=== PATIENT | female | born 1950 | race Caucasian/White ===

== ENCOUNTER 2024-10-04 03:09 | Observation (INO) | payer OTHER ==
[2024-10-04 03:30] VITALS: BMI 21.4
[2024-10-04] MEDS: LACTATED RINGERS SOLUTION 1000 ML INFUS.BAG IV ONE (04:15)
[2024-10-04 04:22] LABS: ABSOLUTE IMMATURE GRANULOCYTES 0.03 x10^3/uL (0.0-0.031); BASOPHILS # 0.07 x10^3/uL (0.01-0.08); EOSINOPHIL % 3.2 % (0.7-5.8); EOSINOPHILS # 0.28 x10^3/uL (0.04-0.36); HEMATOCRIT 34.6 % (34.1-44.9); HEMOGLOBIN 11.3 g/dL (11.2-15.7); MCHC 32.7 g/dl (32.2-35.5); MEAN CELL VOLUME 90.3 fl (79.4-94.8); MEAN PLT VOLUME 9.1 fl (9.4-12.3); MONOCYTE # 0.63 x10^3/uL (0.24-0.86); MONOCYTE % 7.2 % (4.7-12.5); PLATELET COUNT 301 x10^3/uL (182-369); RDW 12.5 % (12.4-16.6); VENOUS BASE EXCESS -4.1 mmol/L (-2-2); VENOUS O2 SATURATION 54.9 % (70-80); VENOUS PCO2 39.7 mmHg (38-52); VENOUS PH 7.345 (7.310-7.410)
[2024-10-04 04:58] LABS: CHLORIDE 92 mmol/L (98-107); POTASSIUM 4.4 mmol/L (3.5-5.1); SODIUM 130 mmol/L (136-145)
[2024-10-04 05:01] LABS: ALBUMIN 4.3 g/dl (3.4-5.0); ANION GAP 15 mmol/L (4-13); BLOOD UREA NITROGEN 23.8 mg/dL (7-18); CALCIUM 9.8 mg/dL (8.5-10.1); CO2 23 mmol/L (21-32); MAGNESIUM 1.7 mg/dL (1.8-2.4)
[2024-10-04 05:03] LABS: PHOSPHOROUS 3.3 mg/dL (2.5-4.9); SGOT/AST 17 U/L (15-37); SGPT/ALT 19 U/L (13-61)
[2024-10-04 05:05] LABS: BILIRUBIN,TOTAL 0.7 mg/dL (0.2-1); CREATININE 1.1 mg/dL (0.55-1.3)
[2024-10-04 05:07] LABS: ALK PHOS 88 U/L (45-117)
[2024-10-04 05:08] LABS: GLUCOSE,RANDOM 555 mg/dL (74-106)
[2024-10-04] MEDS: INSULIN (NOVOLOG) ASPART 100 UNITS/ML 10ML VIAL SQ ONE (05:24)
[2024-10-04] MEDS: SODIUM CHLORIDE 1,000 ML IV SCH ×2 (06:43→22:48)
[2024-10-04] MEDS ORDERED: HYDROCHLOROTHIAZIDE 12.5 MG CAPSULE (FP) PO SCH (10:00)
[2024-10-04] MEDS: amLODIPine BESYLATE 5 MG TABLET (FP) PO SCH (11:18)
[2024-10-04] MEDS: FAMOTIDINE 20 MG TABLET PO SCH (11:21)
[2024-10-04 11:22] LABS: POTASSIUM 3.8 mmol/L (3.5-5.1)
[2024-10-04] MEDS: LISINOPRIL 10 MG TABLET PO SCH (11:22)
[2024-10-04] MEDS: FOLIC ACID 1 MG TABLET (FP) PO SCH (11:22)
[2024-10-04] MEDS: CLOPIDOGREL BISULFATE 75 MG TABLET (FP) PO SCH (11:22)
[2024-10-04] MEDS: ENOXAPARIN NA (PORCINE) 40 MG/0.4 ML DISP.SYRIN SQ SCH (11:23)
[2024-10-04] MEDS: INSULIN GLARGINE (LANTUS) 100 UNITS/ML UNITS SQ SCH ×2 (11:23→21:20)
[2024-10-04 11:26] LABS: BLOOD UREA NITROGEN 17.9 mg/dL (7-18)
[2024-10-04 11:29] LABS: CREATININE 0.9 mg/dL (0.55-1.3)
[2024-10-04] MEDS: TIMOLOL MALEATE 0.25% GFS OPHTHALMIC SOLN 5 ML BOTTLE OU SCH (11:39)
[2024-10-04] MEDS: INSULIN ASPART SLIDING SCALE (NOVOLOG) 1 VIAL SQ SCH ×2 (11:51→17:29)
[2024-10-04] MEDS: BRIMONIDINE TARTRATE 0.15% OPHTHALMIC 5 ML BOTTLE OU SCH (21:19)
[2024-10-04] MEDS: ATORVASTATIN CA 10 MG TABLET (FP) PO SCH (21:21)
[2024-10-04] MEDS: SENNOSIDES 8.6MG TABLET (FP) PO SCH (21:21)
[2024-10-04] MEDS ORDERED: SENNOSIDES 8.6MG TABLET (FP) PO SCH (22:00)
[2024-10-04] MEDS ORDERED: INSULIN (LEVEMIR) 100 UNITS/ML UNITS SQ SCH (22:00)
[2024-10-04] MEDS ORDERED: LATANOPROST 0.005% OPHTH SOLN 2.5ML BOTTLE OD SCH (22:00)
[2024-10-04] MEDS ORDERED: ATORVASTATIN CA 10 MG TABLET (FP) PO SCH (22:00)
[2024-10-04] MEDS: LATANOPROST 0.005% OPHTH SOLN 2.5ML BOTTLE OD SCH (22:46)
[2024-10-05] MEDS: DEXTROSE 50%-WATER 25 GM/50 ML DISP.SYRIN IVPUSH ONE ×2 (06:35→15:56)
[2024-10-05] MEDS: BRIMONIDINE TARTRATE 0.15% OPHTHALMIC 5 ML BOTTLE OU SCH (07:41)
[2024-10-05] MEDS: FAMOTIDINE 20 MG TABLET PO SCH (09:47)
[2024-10-05] MEDS: CLOPIDOGREL BISULFATE 75 MG TABLET (FP) PO SCH (09:47)
[2024-10-05] MEDS: ENOXAPARIN NA (PORCINE) 40 MG/0.4 ML DISP.SYRIN SQ SCH (09:48)
[2024-10-05] MEDS: FOLIC ACID 1 MG TABLET (FP) PO SCH (09:48)
[2024-10-05] MEDS: TIMOLOL MALEATE 0.25% GFS OPHTHALMIC SOLN 5 ML BOTTLE OU SCH (10:08)
[2024-10-05 11:09] LABS: ABSOLUTE IMMATURE GRANULOCYTES 0.03 x10^3/uL (0.0-0.031); BASOPHILS # 0.04 x10^3/uL (0.01-0.08); EOSINOPHIL % 4.1 % (0.7-5.8); EOSINOPHILS # 0.26 x10^3/uL (0.04-0.36); HEMATOCRIT 30.4 % (34.1-44.9); HEMOGLOBIN 10.2 g/dL (11.2-15.7); MCHC 33.6 g/dl (32.2-35.5); MEAN CELL VOLUME 87.9 fl (79.4-94.8); MONOCYTE # 0.47 x10^3/uL (0.24-0.86); MONOCYTE % 7.3 % (4.7-12.5); PLATELET COUNT 296 x10^3/uL (182-369); RDW 12.6 % (12.4-16.6)
[2024-10-05 11:31] LABS: BLOOD UREA NITROGEN 8.7 mg/dL (7-18); CALCIUM 8.1 mg/dL (8.5-10.1)
[2024-10-05 11:35] LABS: CREATININE 0.8 mg/dL (0.55-1.3)
[2024-10-05] MEDS: LISINOPRIL 10 MG TABLET PO SCH (12:12)
[2024-10-05] MEDS: amLODIPine BESYLATE 5 MG TABLET (FP) PO SCH (12:12)
[2024-10-05 18:30] VITALS: RESP 18
[2024-10-05 21:21] VITALS: TEMP 98.2
[2024-10-06] MEDS: INSULIN GLARGINE (LANTUS) 100 UNITS/ML UNITS SQ SCH (06:24)
[2024-10-06 10:15] VITALS: BP 119/48; PULSE 72
== END 2024-10-06 11:32 | disposition home or self-care (01) ==
LOC: JER 03:09 → JERBED 05:00 → J5S 10:33
PROVIDERS: ADMIT Internal Medicine; ATTEND Internal Medicine
PROC: 3E033GC Introduction of Other Therapeutic Substance into Peripheral Vein, Percutaneous Approach (ICD-10-PCS; principal; 2024-10-04)
PROC: 3E023GC Introduction of Other Therapeutic Substance into Muscle, Percutaneous Approach (ICD-10-PCS; 2024-10-04)
PROC: 3E013VG Introduction of Insulin into Subcutaneous Tissue, Percutaneous Approach (ICD-10-PCS; 2024-10-04)
PROC: 3E0337Z Introduction of Electrolytic and Water Balance Substance into Peripheral Vein, Percutaneous Approach (ICD-10-PCS; 2024-10-04)
DX: E11.65 Type 2 diabetes mellitus with hyperglycemia (principal); I65.22 Occlusion and stenosis of left carotid artery; I10 Essential (primary) hypertension; E78.5 Hyperlipidemia, unspecified; Z88.0 Allergy status to penicillin; Z88.2 Allergy status to sulfonamides; Z88.5 Allergy status to narcotic agent; Z88.8 Allergy status to other drugs, medicaments and biological substances
CPT/HCPCS: 36415; 80048; 80053; 82010; 82803; 82962; 83036; 83735; 84100; 85025; 87635; 93005; 93010; 96361; 96372; 96374; 96376; 97116-GP; 97161-GP; 99285-25; G0378

== ENCOUNTER 2024-10-11 01:35 | Emergency (ER) | payer OTHER ==
[2024-10-11 01:47] VITALS: RESP 16; BMI 24.4
[2024-10-11] MEDS ORDERED: INSULIN ASPART SLIDING SCALE (NOVOLOG) 1 VIAL SQ ONE (02:12)
[2024-10-11] MEDS: INSULIN (NOVOLOG) ASPART 100 UNITS/ML 10ML VIAL SQ ONE (02:17)
[2024-10-11 05:01] VITALS: BP 127/57; PULSE 84; TEMP 97.5
== END 2024-10-11 05:08 ==
LOC: JER 01:35
DX: E11.65 Type 2 diabetes mellitus with hyperglycemia (principal)
CPT/HCPCS: 82962; 99283-25

== ENCOUNTER 2024-12-04 01:57 | Inpatient (IN) | payer OTHER ==
[2024-12-04] MEDS: LACTATED RINGERS SOLUTION 1000 ML INFUS.BAG IV ONE ×2 (02:19→10:17)
[2024-12-04] MEDS: ACETAMINOPHEN 1000 MG/100 ML BAG IVPB ONE ×2 (02:19→21:21)
[2024-12-04] MEDS ORDERED: ACETAMINOPHEN INJECTION 100 ML ONE (02:20)
[2024-12-04] MEDS ORDERED: CEFEPIME HCL/D5W 1 GM/50 ML BAG IVPB ONE (02:55)
[2024-12-04] MEDS: CEFEPIME HCL 1 GM VIAL (RESTRICTED TO ID) IVPB ONE (02:57)
[2024-12-04 02:59] LABS: HEMATOCRIT 29.4 % (34.1-44.9); HEMOGLOBIN 9.2 g/dL (11.2-15.7); MCHC 31.3 g/dl (32.2-35.5); MEAN CELL VOLUME 95.8 fl (79.4-94.8); MEAN PLT VOLUME 9.5 fl (9.4-12.3); PLATELET COUNT 451 x10^3/uL (182-369); RDW 13.8 % (12.4-16.6)
[2024-12-04 03:02] LABS: VENOUS BASE EXCESS -19.9 mmol/L (-2-2); VENOUS O2 SATURATION 47.1 % (70-80); VENOUS PCO2 25.9 mmHg (38-52)
[2024-12-04 03:05] LABS: VENOUS PH 7.11 (7.310-7.410)
[2024-12-04 03:10] LABS: INR 1.06 (0.83-1.09); PROTHROMBIN TIME (PATIENT) 11.5 SEC (9.7-13.0)
[2024-12-04 03:13] LABS: ACTIVATED PTT 25.6 SECONDS (25.2-36.5)
[2024-12-04 03:18] LABS: CHLORIDE 91 mmol/L (98-107); POTASSIUM 5.4 mmol/L (3.5-5.1); SODIUM 126 mmol/L (136-145)
[2024-12-04 03:20] LABS: CALCIUM 8.1 mg/dL (8.5-10.1)
[2024-12-04 03:21] LABS: ALBUMIN 2.4 g/dl (3.4-5.0); ANION GAP 27 mmol/L (4-13); BLOOD UREA NITROGEN 39.6 mg/dL (7-18); CO2 8 mmol/L (21-32)
[2024-12-04 03:24] LABS: CREATININE 2.2 mg/dL (0.55-1.3); SGOT/AST 254 U/L (15-37); SGPT/ALT 103 U/L (13-61)
[2024-12-04 03:25] LABS: BILIRUBIN,TOTAL 0.4 mg/dL (0.2-1); TOT PROT 5.1 g/dl (6.4-8.2)
[2024-12-04 03:27] LABS: ALK PHOS 152 U/L (45-117)
[2024-12-04 03:55] LABS: EPI CELLS 20 /uL (0-25.1); HYALINE CASTS 6 /uL (0-3.1); URINE APPEARANCE CLOUDY; URINE BACTERIA 31 /uL (0-1359); URINE BILIRUBIN NEGATIVE (NEGATIVE); URINE COLOR YELLOW; URINE GLUCOSE (UA) 3+ (NEGATIVE); URINE KETONE TRACE (NEGATIVE); URINE LEUK ESTERASE NEGATIVE (NEGATIVE); URINE NITRITE NEGATIVE (NEGATIVE); URINE PROTEIN 2+ (NEGATIVE); URINE UROBILINOGEN 0.2 mg/dL (0.2-1.0); URINE WBC 55 /uL (0-25.8)
[2024-12-04] MEDS ORDERED: INSULIN REGULAR HUMAN 100 UNITS/ML *VIAL ONE (04:07)
[2024-12-04] MEDS: INSULIN REGULAR HUMAN 100 UNITS/ML *VIAL* (FOR IVP) IVPUSH ONE (04:08)
[2024-12-04] MEDS: VANCOMYCIN 1,000 MG in DEXTROSE 5%-WATER - 250 ML IVPB ONE (04:09)
[2024-12-04] MEDS ORDERED: VANCOMYCIN 1 GM PREMIX (F) 1 GM/200 ML BAG ONE (04:09)
[2024-12-04 04:11] LABS: GLUCOSE,RANDOM 633 mg/dL (74-106); LACTIC ACID 5.9 mmol/L (0.4-2.0)
[2024-12-04] MEDS ORDERED: CALCIUM GLUCONATE 10% - 1,000 MG/10 ML VIAL ONE (04:35)
[2024-12-04] MEDS ORDERED: CALCIUM GLUC IN NACL, ISO-OSM 1 GM/50 ML BAG IVPB ONE (04:38)
[2024-12-04] MEDS: CALCIUM GLUCONATE 10% - 1,000 MG/10 ML VIAL IVPB ONE ×2 (04:43→06:23)
[2024-12-04 05:10] LABS: VENOUS BASE EXCESS -16.5 mmol/L (-2-2)
[2024-12-04 05:12] LABS: VENOUS PH 7.199 (7.310-7.410)
[2024-12-04] MEDS: INSULIN REGULAR 100 UNITS in SODIUM CHLORIDE 99 ML IVPB SCH (05:45)
[2024-12-04] MEDS: hydrALAZINE HCL 20 MG/ML VIAL IM ONE (06:57)
[2024-12-04] MEDS: FAMOTIDINE 20 MG/50 ML IVPB 20 MG/50 ML MG IVPB SCH (06:58)
[2024-12-04 07:46] LABS: LACTIC ACID 5.7 mmol/L (0.4-2.0)
[2024-12-04] MEDS: LACTATED RINGERS SOLUTION 1,000 ML/1,000 ML INFUS.BAG IV SCH (08:03)
[2024-12-04 08:18] LABS: VENOUS BASE EXCESS -12.6 mmol/L (-2-2); VENOUS O2 SATURATION 90.9 % (70-80); VENOUS PCO2 22.3 mmHg (38-52); VENOUS PH 7.329 (7.310-7.410)
[2024-12-04 08:29] LABS: HEMOGLOBIN 8.6 g/dL (11.2-15.7); MCHC 31.9 g/dl (32.2-35.5); MEAN CELL VOLUME 94.4 fl (79.4-94.8); MEAN PLT VOLUME 9.5 fl (9.4-12.3); PLATELET COUNT 400 x10^3/uL (182-369); RDW 13.6 % (12.4-16.6)
[2024-12-04 08:33] LABS: INR 1.12 (0.83-1.09); PROTHROMBIN TIME (PATIENT) 12.3 SEC (9.7-13.0)
[2024-12-04 08:36] LABS: ACTIVATED PTT 23.1 SECONDS (25.2-36.5)
[2024-12-04] MEDS: NICARDIPINE 25 MG in DEXTROSE 5%-WATER - 240 ML IVPB SCH (08:43)
[2024-12-04 08:52] LABS: CHLORIDE 94 mmol/L (98-107); POTASSIUM 4.8 mmol/L (3.5-5.1); SODIUM 128 mmol/L (136-145)
[2024-12-04 08:54] LABS: CALCIUM 8.8 mg/dL (8.5-10.1)
[2024-12-04 08:55] LABS: ALBUMIN 2.4 g/dl (3.4-5.0); ANION GAP 22 mmol/L (4-13); BLOOD UREA NITROGEN 39.2 mg/dL (7-18); CO2 11 mmol/L (21-32); MAGNESIUM 1.5 mg/dL (1.8-2.4)
[2024-12-04 08:55] LABS: AMYLASE 39 U/L (25-115)
[2024-12-04 08:58] LABS: CREATININE 2.1 mg/dL (0.55-1.3); PHOSPHOROUS 4.8 mg/dL (2.5-4.9); SGOT/AST 245 U/L (15-37); SGPT/ALT 104 U/L (13-61)
[2024-12-04 08:59] LABS: BILIRUBIN,TOTAL 0.5 mg/dL (0.2-1)
[2024-12-04 09:00] LABS: ALK PHOS 146 U/L (45-117)
[2024-12-04 09:05] LABS: MONOCYTE # 1.87 x10^3/uL (0.24-0.86)
[2024-12-04] MEDS: MUPIROCIN 2% TOPICAL OINTMENT FOR DECOLONIZATION NS SCH (09:05)
[2024-12-04 09:27] LABS: N-TERMINAL BNP 43342.7 pg/ml (5-450)
[2024-12-04 09:27] LABS: GLUCOSE,RANDOM 425 mg/dL (74-106); LACTIC ACID 6.1 mmol/L (0.4-2.0)
[2024-12-04] MEDS ORDERED: HEPARIN NA (PORCINE) 5,000 UNITS/ML 1ML VIAL IVPUSH PRN ×2 (10:24)
[2024-12-04] MEDS: D5-1/2NS+20 MEQ KCL - 20 MEQ/1,000 ML INFUS.BAG IV SCH (11:03)
[2024-12-04] MEDS: NOREPINEPHRINE 0.9 % NACL 8 MG/250 ML BAG IVPB SCH ×2 (11:10→21:00)
[2024-12-04] MEDS: HEPARIN - 25,000 UNIT in SODIUM CHLORIDE 495 ML IV SCH (11:23)
[2024-12-04 12:52] LABS: POTASSIUM 3.9 mmol/L (3.5-5.1)
[2024-12-04 12:54] LABS: LACTIC ACID 4.7 mmol/L (0.4-2.0)
[2024-12-04 12:58] LABS: CALCIUM 8.5 mg/dL (8.5-10.1)
[2024-12-04 12:59] LABS: BLOOD UREA NITROGEN 36.1 mg/dL (7-18); MAGNESIUM 1.3 mg/dL (1.8-2.4)
[2024-12-04 13:02] LABS: CREATININE 1.7 mg/dL (0.55-1.3)
[2024-12-04] MEDS: MAGNESIUM SULFATE IN WATER 2 GM/50 ML IVPB IVPB ONE (13:32)
[2024-12-04] MEDS: D5-NS + 40 MEQ KCL - 40 MEQ/1,000 ML INFUS.BAG IV SCH ×2 (13:32→17:43)
[2024-12-04 17:32] LABS: POTASSIUM 4.3 mmol/L (3.5-5.1)
[2024-12-04 17:33] LABS: CALCIUM 8.9 mg/dL (8.5-10.1)
[2024-12-04 17:34] LABS: BLOOD UREA NITROGEN 35.1 mg/dL (7-18); MAGNESIUM 1.7 mg/dL (1.8-2.4)
[2024-12-04 17:37] LABS: CREATININE 1.4 mg/dL (0.55-1.3)
[2024-12-04 17:38] LABS: PHOSPHOROUS 2.6 mg/dL (2.5-4.9)
[2024-12-04] MEDS: MAGNESIUM 1GM/D5W - 1 GM/100 ML IVPB IVPB ONE (17:52)
[2024-12-04] MEDS: LACTATED RINGERS SOLUTION 1,000 ML/1,000 ML INFUS.BAG IV STA (20:00)
[2024-12-04] MEDS: CHLORHEXIDINE GLUCONATE 4% CLEANSER FOR DECOLONIZATION TP SCH (21:04)
[2024-12-04] MEDS: CEFEPIME 1 GM in DEXTROSE 5%-WATER 100 ML IVPB SCH (21:11)
[2024-12-04 23:18] LABS: LACTIC ACID 2.7 mmol/L (0.4-2.0)
[2024-12-04 23:49] LABS: POTASSIUM 4.8 mmol/L (3.5-5.1)
[2024-12-04 23:51] LABS: BLOOD UREA NITROGEN 29.4 mg/dL (7-18)
[2024-12-04 23:55] LABS: CREATININE 1.2 mg/dL (0.55-1.3)
[2024-12-05 03:41] LABS: POTASSIUM 5.1 mmol/L (3.5-5.1)
[2024-12-05 03:42] LABS: CALCIUM 8.1 mg/dL (8.5-10.1)
[2024-12-05 03:43] LABS: BLOOD UREA NITROGEN 26.7 mg/dL (7-18)
[2024-12-05 03:46] LABS: CREATININE 1.1 mg/dL (0.55-1.3)
[2024-12-05 06:59] LABS: BASOPHILS # 0.05 x10^3/uL (0.01-0.08); EOSINOPHIL % 0.1 % (0.7-5.8); EOSINOPHILS # 0.02 x10^3/uL (0.04-0.36); HEMATOCRIT 22.5 % (34.1-44.9); HEMOGLOBIN 7.7 g/dL (11.2-15.7); MCHC 34.2 g/dl (32.2-35.5); MEAN CELL VOLUME 88.2 fl (79.4-94.8); MEAN PLT VOLUME 9.6 fl (9.4-12.3); MONOCYTE # 0.74 x10^3/uL (0.24-0.86); MONOCYTE % 5.3 % (4.7-12.5); PLATELET COUNT 326 x10^3/uL (182-369); RDW 13.8 % (12.4-16.6)
[2024-12-05 07:03] LABS: CALCIUM 7.9 mg/dL (8.5-10.1)
[2024-12-05 07:04] LABS: MAGNESIUM 1.8 mg/dL (1.8-2.4)
[2024-12-05 07:07] LABS: CREATININE 1.1 mg/dL (0.55-1.3); PHOSPHOROUS 1.4 mg/dL (2.5-4.9)
[2024-12-05 07:08] LABS: LACTIC ACID 3.3 mmol/L (0.4-2.0)
[2024-12-05] MEDS: LACTATED RINGERS SOLUTION 1,000 ML/1,000 ML INFUS.BAG IV SCH (07:46)
[2024-12-05] MEDS: INSULIN ASPART SLIDING SCALE (NOVOLOG) 1 VIAL SQ SCH (07:48)
[2024-12-05] MEDS: KETOROLAC TROMETHAMINE 15 MG/ML VIAL IVPUSH ONE ×2 (07:57→20:43)
[2024-12-05] MEDS: QUEtiapine FUMARATE 25 MG TABLET PO ONE (07:57)
[2024-12-05] MEDS: SODIUM PHOSPHATE - 15 MM in DEXTROSE 5%-WATER - 250 ML IVPB ONE (09:30)
[2024-12-05] MEDS ORDERED: CEFEPIME 1 GM in DEXTROSE 5%-WATER 100 ML IVPB SCH (10:00)
[2024-12-05] MEDS ORDERED: CEFEPIME HCL 1 GM VIAL (RESTRICTED TO ID) IVPB SCH (10:00)
[2024-12-05] MEDS: INSULIN GLARGINE (LANTUS) 100 UNITS/ML UNITS SQ SCH (10:12)
[2024-12-05] MEDS: LACTATED RINGERS SOLUTION 1000 ML INFUS.BAG IV ONE (12:55)
[2024-12-05] MEDS: QUEtiapine FUMARATE 25 MG TABLET PO SCH (21:01)
[2024-12-06] MEDS: QUEtiapine FUMARATE 25 MG TABLET PO ONE (00:54)
[2024-12-06 07:11] LABS: ABSOLUTE IMMATURE GRANULOCYTES 0.09 x10^3/uL (0.0-0.031); BASOPHILS # 0.04 x10^3/uL (0.01-0.08); EOSINOPHIL % 0.6 % (0.7-5.8); EOSINOPHILS # 0.06 x10^3/uL (0.04-0.36); HEMATOCRIT 21.5 % (34.1-44.9); MCHC 32.6 g/dl (32.2-35.5); MEAN PLT VOLUME 10.1 fl (9.4-12.3); MONOCYTE # 0.47 x10^3/uL (0.24-0.86); PLATELET COUNT 250 x10^3/uL (182-369); RDW 14.7 % (12.4-16.6)
[2024-12-06 07:17] LABS: HEMATOCRIT 21.2 % (34.1-44.9); MEAN CELL VOLUME 89.8 fl (79.4-94.8); MEAN PLT VOLUME 10.2 fl (9.4-12.3); PLATELET COUNT 256 x10^3/uL (182-369); RDW 14.8 % (12.4-16.6)
[2024-12-06 07:21] LABS: BLOOD UREA NITROGEN 21.8 mg/dL (7-18); MAGNESIUM 1.8 mg/dL (1.8-2.4)
[2024-12-06 07:23] LABS: ALBUMIN 1.8 g/dl (3.4-5.0); BILIRUBIN,TOTAL 0.4 mg/dL (0.2-1); CREATININE 0.8 mg/dL (0.55-1.3)
[2024-12-06 07:24] LABS: PHOSPHOROUS 2.2 mg/dL (2.5-4.9)
[2024-12-06 12:05] LABS: ABSOLUTE IMMATURE GRANULOCYTES 0.08 x10^3/uL (0.0-0.031); BASOPHILS # 0.07 x10^3/uL (0.01-0.08); HEMATOCRIT 22.3 % (34.1-44.9); HEMOGLOBIN 7.3 g/dL (11.2-15.7); MCHC 32.7 g/dl (32.2-35.5); MEAN PLT VOLUME 9.6 fl (9.4-12.3); MONOCYTE # 0.53 x10^3/uL (0.24-0.86); MONOCYTE % 5.2 % (4.7-12.5); PLATELET COUNT 261 x10^3/uL (182-369); RDW 14.9 % (12.4-16.6)
[2024-12-06 18:56] LABS: ABSOLUTE IMMATURE GRANULOCYTES 0.06 x10^3/uL (0.0-0.031); BASOPHILS # 0.04 x10^3/uL (0.01-0.08); EOSINOPHIL % 1.2 % (0.7-5.8); EOSINOPHILS # 0.11 x10^3/uL (0.04-0.36); HEMATOCRIT 28.2 % (34.1-44.9); HEMOGLOBIN 9.4 g/dL (11.2-15.7); MCHC 33.3 g/dl (32.2-35.5); MEAN CELL VOLUME 90.7 fl (79.4-94.8); MEAN PLT VOLUME 9.6 fl (9.4-12.3); MONOCYTE # 0.48 x10^3/uL (0.24-0.86); MONOCYTE % 5.3 % (4.7-12.5); PLATELET COUNT 245 x10^3/uL (182-369); RDW 14.3 % (12.4-16.6)
[2024-12-06] MEDS: FUROSEMIDE 40 MG/4 ML INJECTABLE VIAL IVPUSH ONE (21:30)
[2024-12-06] MEDS ORDERED: FUROSEMIDE 40 MG/4 ML INJECTABLE VIAL ONE (21:33)
[2024-12-06] MEDS: MAGNESIUM SULFATE IN WATER 2 GM/50 ML IVPB IVPB ONE (22:15)
[2024-12-07] MEDS: ACETAMINOPHEN 1000 MG/100 ML BAG IVPB PRN (00:21)
[2024-12-07 06:49] LABS: POTASSIUM 4.6 mmol/L (3.5-5.1)
[2024-12-07 06:57] LABS: BLOOD UREA NITROGEN 17.4 mg/dL (7-18); CALCIUM 7.9 mg/dL (8.5-10.1)
[2024-12-07 06:58] LABS: ALBUMIN 1.9 g/dl (3.4-5.0); MAGNESIUM 1.9 mg/dL (1.8-2.4)
[2024-12-07 07:00] LABS: ABSOLUTE IMMATURE GRANULOCYTES 0.05 x10^3/uL (0.0-0.031); BASOPHILS # 0.05 x10^3/uL (0.01-0.08); EOSINOPHIL % 1.9 % (0.7-5.8); EOSINOPHILS # 0.14 x10^3/uL (0.04-0.36); HEMATOCRIT 27.8 % (34.1-44.9); MCHC 32.4 g/dl (32.2-35.5); MEAN CELL VOLUME 89.4 fl (79.4-94.8); MEAN PLT VOLUME 9.7 fl (9.4-12.3); MONOCYTE # 0.43 x10^3/uL (0.24-0.86); MONOCYTE % 5.9 % (4.7-12.5); PLATELET COUNT 224 x10^3/uL (182-369)
[2024-12-07 07:01] LABS: CREATININE 0.7 mg/dL (0.55-1.3); PHOSPHOROUS 2.6 mg/dL (2.5-4.9)
[2024-12-07 07:02] LABS: BILIRUBIN,TOTAL 0.5 mg/dL (0.2-1); TOT PROT 4.3 g/dl (6.4-8.2)
[2024-12-07 07:46] LABS: INR 1.17 (0.83-1.09); PROTHROMBIN TIME (PATIENT) 12.9 SEC (9.7-13.0)
[2024-12-07] MEDS: ALBUTEROL SO4 2.5/IPRATROPIUM 0.5 INH SOL 3 ML VIAL.NEB. NEB PRN (15:27)
[2024-12-07] MEDS: DEXTROSE 50%-WATER 25 GM/50 ML DISP.SYRIN IVPUSH ONE (15:54)
[2024-12-08 06:30] LABS: ABSOLUTE IMMATURE GRANULOCYTES 0.05 x10^3/uL (0.0-0.031); BASOPHILS # 0.04 x10^3/uL (0.01-0.08); EOSINOPHIL % 1.9 % (0.7-5.8); EOSINOPHILS # 0.12 x10^3/uL (0.04-0.36); HEMATOCRIT 26.4 % (34.1-44.9); HEMOGLOBIN 8.9 g/dL (11.2-15.7); MCHC 33.7 g/dl (32.2-35.5); MEAN CELL VOLUME 87.7 fl (79.4-94.8); MEAN PLT VOLUME 9.4 fl (9.4-12.3); MONOCYTE # 0.49 x10^3/uL (0.24-0.86); MONOCYTE % 7.6 % (4.7-12.5); PLATELET COUNT 246 x10^3/uL (182-369); RDW 15.3 % (12.4-16.6)
[2024-12-08 06:31] LABS: POTASSIUM 4.3 mmol/L (3.5-5.1)
[2024-12-08 06:41] LABS: ALBUMIN 1.8 g/dl (3.4-5.0); BLOOD UREA NITROGEN 13.4 mg/dL (7-18); CALCIUM 8.1 mg/dL (8.5-10.1)
[2024-12-08 06:44] LABS: CREATININE 0.6 mg/dL (0.55-1.3)
[2024-12-08 06:45] LABS: BILIRUBIN,TOTAL 0.5 mg/dL (0.2-1)
[2024-12-08 06:47] LABS: TOT PROT 4.1 g/dl (6.4-8.2)
[2024-12-08] MEDS: ACETAMINOPHEN 1000 MG/100 ML BAG IVPB PRN (11:34)
[2024-12-08] MEDS: BRIMONIDINE TARTRATE 0.15% OPHTHALMIC 5 ML BOTTLE OU SCH (14:33)
[2024-12-08] MEDS ORDERED: INSULIN ASPART SLIDING SCALE (NOVOLOG) 1 VIAL SQ ONE (18:32)
[2024-12-08] MEDS: ATORVASTATIN CA 10 MG TABLET (FP) PO SCH (21:59)
[2024-12-08] MEDS: INSULIN GLARGINE (LANTUS) 100 UNITS/ML UNITS SQ SCH (22:05)
[2024-12-09] MEDS ORDERED: DEXTROSE 50%-WATER 25 GM/50 ML DISP.SYRIN ONE ×2 (06:27→12:53)
[2024-12-09 06:36] LABS: HEMATOCRIT 20.3 % (34.1-44.9); HEMOGLOBIN 6.6 g/dL (11.2-15.7); MCHC 32.5 g/dl (32.2-35.5); MEAN PLT VOLUME 9.5 fl (9.4-12.3); PLATELET COUNT 176 x10^3/uL (182-369); RDW 15.5 % (12.4-16.6)
[2024-12-09 06:43] LABS: CHLORIDE 112 mmol/L (98-107); SODIUM 140 mmol/L (136-145)
[2024-12-09 06:45] LABS: ALBUMIN 1.9 g/dl (3.4-5.0); ANION GAP 9 mmol/L (4-13); BLOOD UREA NITROGEN 11.2 mg/dL (7-18); CALCIUM 7.5 mg/dL (8.5-10.1); CO2 19 mmol/L (21-32); MAGNESIUM 1.5 mg/dL (1.8-2.4)
[2024-12-09 06:48] LABS: PHOSPHOROUS 2.1 mg/dL (2.5-4.9); SGOT/AST 38 U/L (15-37); SGPT/ALT 59 U/L (13-61)
[2024-12-09 06:49] LABS: CREATININE 0.7 mg/dL (0.55-1.3)
[2024-12-09 06:50] LABS: BILIRUBIN,TOTAL 0.4 mg/dL (0.2-1); TOT PROT 4.3 g/dl (6.4-8.2)
[2024-12-09] MEDS: DEXTROSE 50%-WATER 25 GM/50 ML DISP.SYRIN IVPUSH ONE (06:50)
[2024-12-09 06:51] LABS: ALK PHOS 138 U/L (45-117)
[2024-12-09] MEDS ORDERED: INSULIN GLARGINE (LANTUS) 100 UNITS/ML UNITS SQ ONE (06:52)
[2024-12-09 07:57] LABS: GLUCOSE,RANDOM 45 mg/dL (74-106)
[2024-12-09 09:30] LABS: Reticulocyte % 4.54 % (0.5-1.7)
[2024-12-09 12:01] LABS: LDH 613 U/L (84-246)
[2024-12-09] MEDS: MAGNESIUM 1GM/D5W 100ML - 100 ML IVPB IVPB ONE (12:35)
[2024-12-09] MEDS: CLOPIDOGREL BISULFATE 75 MG TABLET (FP) PO SCH (12:35)
[2024-12-09] MEDS: DEXTROSE 50%-WATER 25 GM/50 ML DISP.SYRIN IVPUSH PRN (12:58)
[2024-12-09 15:34] LABS: GAMMA GLUTAMYL TRANSPEPTIDASE 40 U/L (5-85)
[2024-12-09 15:37] LABS: IRON SERUM 32 ug/dL (50-175)
[2024-12-09 15:38] LABS: TOTAL IRON BINDING CAPACITY 161 ug/dL (250-450)
[2024-12-09 16:55] LABS: HEMATOCRIT 33.1 % (34.1-44.9); HEMOGLOBIN 11.1 g/dL (11.2-15.7); MCHC 33.5 g/dl (32.2-35.5); MEAN CELL VOLUME 89.5 fl (79.4-94.8); MEAN PLT VOLUME 9.4 fl (9.4-12.3); PLATELET COUNT 233 x10^3/uL (182-369); RDW 15.6 % (12.4-16.6)
[2024-12-09 21:05] LABS: HEMATOCRIT 33.7 % (34.1-44.9); HEMOGLOBIN 11.3 g/dL (11.2-15.7); MCHC 33.5 g/dl (32.2-35.5); MEAN CELL VOLUME 89.2 fl (79.4-94.8); MEAN PLT VOLUME 9.4 fl (9.4-12.3); PLATELET COUNT 227 x10^3/uL (182-369); RDW 16.1 % (12.4-16.6)
[2024-12-10] MEDS: INSULIN ASPART SLIDING SCALE (NOVOLOG) 1 VIAL SQ SCH ×2 (06:58→18:20)
[2024-12-10 07:05] LABS: POTASSIUM 4.3 mmol/L (3.5-5.1)
[2024-12-10 07:14] LABS: HEMATOCRIT 32.3 % (34.1-44.9); HEMOGLOBIN 10.7 g/dL (11.2-15.7); MCHC 33.1 g/dl (32.2-35.5); MEAN CELL VOLUME 89.7 fl (79.4-94.8); MEAN PLT VOLUME 9.4 fl (9.4-12.3); PLATELET COUNT 219 x10^3/uL (182-369); RDW 16.3 % (12.4-16.6)
[2024-12-10 07:16] LABS: CALCIUM 7.9 mg/dL (8.5-10.1)
[2024-12-10 07:17] LABS: ALBUMIN 1.8 g/dl (3.4-5.0); MAGNESIUM 1.4 mg/dL (1.8-2.4)
[2024-12-10 07:19] LABS: CREATININE 0.6 mg/dL (0.55-1.3)
[2024-12-10 07:21] LABS: BILIRUBIN,TOTAL 0.4 mg/dL (0.2-1); TOT PROT 4.2 g/dl (6.4-8.2)
[2024-12-10] MEDS: MAGNESIUM 1GM/D5W 100ML - 100 ML IVPB IVPB ONE (10:27)
[2024-12-10] MEDS: PANTOPRAZOLE 40 MG TABLET PO SCH (10:27)
[2024-12-10 12:19] LABS: HEPATITIS B SURF AG NON-MATERN NON-REACTIVE (NONREACTIVE)
[2024-12-10 12:48] LABS: HCV DIAGNOSTIC IN-HOUSE W/RFLX NON-REACTIVE (NONREACTIVE)
[2024-12-10] MEDS ORDERED: ALBUTEROL SO4 2.5/IPRATROPIUM 0.5 INH SOL 3 ML VIAL.NEB. NEB PRN (17:01)
[2024-12-10] MEDS ORDERED: CHLORHEXIDINE GLUCONATE 4% CLEANSER FOR DECOLONIZATION TP SCH (22:00)
[2024-12-10] MEDS: ATORVASTATIN CA 10 MG TABLET (FP) PO SCH (22:33)
[2024-12-10] MEDS: QUEtiapine FUMARATE 25 MG TABLET PO SCH (22:33)
[2024-12-10] MEDS: BRIMONIDINE TARTRATE 0.15% OPHTHALMIC 5 ML BOTTLE OU SCH (22:54)
[2024-12-11] MEDS: INSULIN GLARGINE (LANTUS) 100 UNITS/ML UNITS SQ SCH (06:31)
[2024-12-11] MEDS: DEXTROSE 50%-WATER 25 GM/50 ML DISP.SYRIN IVPUSH PRN (10:06)
[2024-12-11] MEDS ORDERED: DEXTROSE 50%-WATER 25 GM/50 ML DISP.SYRIN ONE (10:09)
[2024-12-11] MEDS ORDERED: INSULIN GLARGINE (LANTUS) 100 UNITS/ML UNITS SQ SCH ×2 (10:10→22:00)
[2024-12-11] MEDS: PANTOPRAZOLE 40 MG TABLET PO SCH (10:30)
[2024-12-11 11:55] VITALS: RESP 18
[2024-12-11] MEDS: QUEtiapine FUMARATE 25 MG TABLET PO SCH (12:49)
[2024-12-11] MEDS: ACETAMINOPHEN 1000 MG/100 ML BAG IVPB PRN (16:28)
[2024-12-11] MEDS: QUEtiapine FUMARATE 25 MG TABLET PO ONE (17:08)
[2024-12-11] MEDS: DEXTROSE 5%-WATER - 1,000 ML IV SCH (17:09)
[2024-12-12] MEDS: LORazepam 2 MG/ML SDV VIAL IVPUSH ONE (04:13)
[2024-12-12] MEDS ORDERED: INSULIN ASPART SLIDING SCALE (NOVOLOG) 1 VIAL SQ ONE (06:57)
[2024-12-12 11:38] LABS: ABSOLUTE IMMATURE GRANULOCYTES 0.07 x10^3/uL (0.0-0.031); BASOPHILS # 0.05 x10^3/uL (0.01-0.08); EOSINOPHIL % 1.8 % (0.7-5.8); EOSINOPHILS # 0.11 x10^3/uL (0.04-0.36); HEMATOCRIT 40.2 % (34.1-44.9); HEMOGLOBIN 12.8 g/dL (11.2-15.7); MCHC 31.8 g/dl (32.2-35.5); MEAN PLT VOLUME 9.1 fl (9.4-12.3); MONOCYTE # 0.53 x10^3/uL (0.24-0.86); MONOCYTE % 8.8 % (4.7-12.5); PLATELET COUNT 247 x10^3/uL (182-369); RDW 16.4 % (12.4-16.6)
[2024-12-12] MEDS: INSULIN ASPART SLIDING SCALE (NOVOLOG) 1 VIAL SQ SCH (11:40)
[2024-12-12 11:42] LABS: POTASSIUM 4.4 mmol/L (3.5-5.1)
[2024-12-12 11:44] LABS: CALCIUM 8.1 mg/dL (8.5-10.1)
[2024-12-12 11:46] LABS: ALBUMIN 2.1 g/dl (3.4-5.0); BLOOD UREA NITROGEN 9.4 mg/dL (7-18)
[2024-12-12 11:48] LABS: CREATININE 0.7 mg/dL (0.55-1.3)
[2024-12-12 11:50] LABS: BILIRUBIN,TOTAL 0.7 mg/dL (0.2-1)
[2024-12-12 12:39] LABS: TOT PROT 4.6 g/dl (6.4-8.2)
[2024-12-12] MEDS ORDERED: BISACODYL 5 MG TABLET.DR (FP) PO ONE (16:00)
[2024-12-12] MEDS ORDERED: PEG 3350/NA SULF BICARB CL/KCL 4000 ML SOLN.RECON PO ONE (17:00)
[2024-12-13] MEDS: LORazepam 2 MG/ML SDV VIAL IVPUSH ONE (05:22)
[2024-12-13 10:24] LABS: ABSOLUTE IMMATURE GRANULOCYTES 0.04 x10^3/uL (0.0-0.031); BASOPHILS # 0.03 x10^3/uL (0.01-0.08); EOSINOPHIL % 0.5 % (0.7-5.8); EOSINOPHILS # 0.03 x10^3/uL (0.04-0.36); HEMATOCRIT 30.4 % (34.1-44.9); HEMOGLOBIN 9.8 g/dL (11.2-15.7); MCHC 32.2 g/dl (32.2-35.5); MEAN CELL VOLUME 92.4 fl (79.4-94.8); MEAN PLT VOLUME 9.4 fl (9.4-12.3); MONOCYTE # 0.69 x10^3/uL (0.24-0.86); MONOCYTE % 10.5 % (4.7-12.5); PLATELET COUNT 249 x10^3/uL (182-369)
[2024-12-13 10:31] LABS: INR 1.47 (0.83-1.09)
[2024-12-13 10:46] LABS: CALCIUM 7.7 mg/dL (8.5-10.1)
[2024-12-13 10:47] LABS: BLOOD UREA NITROGEN 13.1 mg/dL (7-18)
[2024-12-13 10:49] LABS: CREATININE 0.8 mg/dL (0.55-1.3)
[2024-12-13 10:51] LABS: BILIRUBIN,TOTAL 0.6 mg/dL (0.2-1); TOT PROT 3.7 g/dl (6.4-8.2)
[2024-12-13 10:53] LABS: ALBUMIN 1.7 g/dl (3.4-5.0)
[2024-12-13] MEDS: DEXTROSE 5%-0.45% SALINE 1,000 ML IV SCH (12:00)
[2024-12-13] MEDS ORDERED: BISACODYL 5 MG TABLET.DR (FP) PO ONE (16:00)
[2024-12-13] MEDS ORDERED: PEG 3350/NA SULF BICARB CL/KCL 4000 ML SOLN.RECON PO ONE (17:00)
[2024-12-14] MEDS: MELATONIN 5 MG TABLETS PO ONE (03:26)
[2024-12-14] MEDS: POLYETHYLENE GLYCOL (HEALTHYLAX) 3350 17 GM PACKET PO SCH (09:52)
[2024-12-14] MEDS: QUEtiapine FUMARATE 50 MG TABLET PO SCH (11:06)
[2024-12-14 12:05] VITALS: BMI 24.0
[2024-12-14] MEDS: IRON SUCROSE INJECTION 200 MG in SODIUM CHLORIDE 100 ML IVPB ONE (23:26)
[2024-12-15 08:43] LABS: HEMATOCRIT 29.2 % (34.1-44.9); HEMOGLOBIN 9.5 g/dL (11.2-15.7)
[2024-12-15 08:44] LABS: MCHC 32.5 g/dl (32.2-35.5); MEAN PLT VOLUME 9.3 fl (9.4-12.3); PLATELET COUNT 206 x10^3/uL (182-369); RDW 16.4 % (12.4-16.6)
[2024-12-15] MEDS: FERROUS SO4 325 MG TABLET (FP) PO SCH (08:55)
[2024-12-15 08:58] LABS: POTASSIUM 3.7 mmol/L (3.5-5.1)
[2024-12-15 09:01] LABS: BLOOD UREA NITROGEN 9.9 mg/dL (7-18); CALCIUM 8.5 mg/dL (8.5-10.1)
[2024-12-15 09:04] LABS: CREATININE 0.5 mg/dL (0.55-1.3)
[2024-12-15 14:11] VITALS: BP 150/81; PULSE 97; TEMP 97.9
== END 2024-12-15 15:31 | DRG 871 ==
LOC: JER 01:57 → JERBED 04:36 → JICU 05:42 → J6S 12-10 16:47
PROVIDERS: ADMIT Internal Medicine Pulmonary Disease; ATTEND Family Medicine
PROC: 05HM33Z Insertion of Infusion Device into Right Internal Jugular Vein, Percutaneous Approach (ICD-10-PCS; principal; 2024-12-04)
PROC: B543ZZA Ultrasonography of Right Jugular Veins, Guidance (ICD-10-PCS; 2024-12-04)
PROC: 4A133B1 Monitoring of Arterial Pressure, Peripheral, Percutaneous Approach (ICD-10-PCS; 2024-12-04)
PROC: 4A133J1 Monitoring of Arterial Pulse, Peripheral, Percutaneous Approach (ICD-10-PCS; 2024-12-04)
DX: A41.89 Other specified sepsis (principal); E11.10 Type 2 diabetes mellitus with ketoacidosis without coma; G93.41 Metabolic encephalopathy; I21.A1 Myocardial infarction type 2; R65.21 Severe sepsis with septic shock; J18.9 Pneumonia, unspecified organism; N17.9 Acute kidney failure, unspecified; N39.0 Urinary tract infection, site not specified; K92.2 Gastrointestinal hemorrhage, unspecified; I25.10 Atherosclerotic heart disease of native coronary artery without angina pectoris; I10 Essential (primary) hypertension; F03.90 Unspecified dementia, unspecified severity, without behavioral disturbance, psychotic disturbance, mood disturbance, and anxiety; E78.5 Hyperlipidemia, unspecified; E11.649 Type 2 diabetes mellitus with hypoglycemia without coma; E11.51 Type 2 diabetes mellitus with diabetic peripheral angiopathy without gangrene; E87.5 Hyperkalemia; D72.829 Elevated white blood cell count, unspecified; M84.441D Pathological fracture, right hand, subsequent encounter for fracture with routine healing; Z86.73 Personal history of transient ischemic attack (TIA), and cerebral infarction without residual deficits
CPT/HCPCS: 0241U-QW; 36415; 36430; 70450-TC; 71045-TC-FY; 72170-TC-FY; 73070-TC-LT-FY; 73110-TC-RT-FY; 73130-TC-RT-FY; 74174-TC; 76705-TC; 80048; 80053; 81003; 82010; 82140; 82150; 82272; 82308; 82550; 82553; 82607; 82728; 82746; 82803; 82962; 82977; 83010; 83036; 83540; 83550; 83605; 83615; 83690; 83735; 83880; 84100; 84436; 84443; 84484; 85025; 85027; 85610; 85730; 86704; 86708; 86803; 86850; 86900; 86901; 86922; 87040; 87086; 87340; 87481; 87493; 87517; 87899; 93005; 93010; 94640; 97161-GP; 99291; P9038; P9058